=== PATIENT | female | born 1985 | race Caucasian/White ===

== ENCOUNTER 2023-12-20 10:08 | Outpatient (REF) | payer OTHER, SELFPAY ==
[2023-12-20 11:34] LABS: Cortisol Random 4.4 ug/dL
[2023-12-21 12:49] LABS: Lutenizing Hormone 16.6 mIU/mL; Prolactin 7.1 ng/mL
== END 2023-12-20 10:09 | disposition home or self-care (01) ==
LOC: HO.LAB 10:08
PROVIDERS: Visit Provider Psychiatry & Neurology Neurology
DX: D35.2 Benign neoplasm of pituitary gland (principal)
CPT/HCPCS: 36415; 82533; 83001; 83002; 84146